=== PATIENT | male | born 1955 | race Caucasian/White ===

== ENCOUNTER 2018-02-11 07:13 | Day surgery (SDC) | payer OTHER ==
[~2018-02-11] VITALS: Ht 180.3 cm; Wt 93.9 kg
[~2018-02-11 07:13] MED LIST: BASAGLAR K100 UNIT/1 SC; GLUCOPHAGE1000 MG PO; HYZAAR 100-21 TABLET PO; KENALOG,ARISTOC80 GM TP; METAMUCIL MULT660 GM PO; PROAIR HFA8.5 GM IH; TEMOVATE 0.05%15 G1 TP; TRADJENTA5 MG PO; ZYRTEC10 M2 PO
[2018-02-11 07:37] VITALS: BP 135/86
[2018-02-11 08:52] LABS: CHLORIDE 103 MEQ/L (99-109); GFR ESTIMATE (CALCULATED) > 59 mL/min/ (58.99-99999); GLUCOSE 151 mg/dL (70-99); POTASSIUM 3.1 MEQ/L (3.7-5.4); SODIUM 141 MEQ/L (136-147); UREA NITROGEN (BUN) 15 mg/dL (9-23)
[2018-02-11 16:37] VITALS: BP 136/78
[2018-02-11 17:37] VITALS: BP 112/72
[2018-02-11] MEDS ORDERED: GABAPENTIN300 MG PO (18:06)
[2018-02-11 18:52] VITALS: BP 133/78
== END 2018-02-11 19:05 | disposition home or self-care (01) ==
LOC: SDC 07:13
PROVIDERS: Podiatrist Foot & Ankle Surgery
DX: M76.71 Peroneal tendinitis, right leg (principal); M93.20 Osteochondritis dissecans of unspecified site; S93.411A Sprain of calcaneofibular ligament of right ankle, initial encounter; S93.491A Sprain of other ligament of right ankle, initial encounter; E11.3299 Type 2 diabetes mellitus with mild nonproliferative diabetic retinopathy without macular edema, unspecified eye; I10 Essential (primary) hypertension; E78.5 Hyperlipidemia, unspecified; J45.909 Unspecified asthma, uncomplicated; Z72.0 Tobacco use; E66.9 Obesity, unspecified; Z68.28 Body mass index [BMI] 28.0-28.9, adult; Z79.4 Long term (current) use of insulin
CPT/HCPCS: 73600; 76000; 80048; 82948; C1713; J0131; J0330; J0690; J1885; J2250; J2795; S0020